=== PATIENT | male | born 1960 | race Caucasian/White ===

== ENCOUNTER → 2021-09-26 15:13 | Outpatient (CLI) | payer OTHER, SELFPAY ==
--- NOTE | 2021-09-26 15:19 | XR_ITS ---
FINAL REPORT CLINICAL HISTORY: medial rt knee pain no injury FINDINGS: RIGHT KNEE 3 views of the right knee were obtained. There is no acute fracture or dislocation. There is moderate medial compartment joint space narrowing with osteophyte formation. There appears to be some intra-articular loose bodies anteriorly with the largest measuring up to 2.2 cm in greatest dimension. These are possibly residing within a popliteal cyst. There are some osteophytes along the undersurface of the patella. IMPRESSION: Hypertrophic changes as described.. Reviewed, Interpreted and Dictated by Wilder Johnson MD Transcribed by Conchita Schmitz Authenticated by Wilder Johnson MD on 09/26/2021 03:54:51 PM [facility]
== END ==
PROVIDERS: PCP Family Medicine; Visit Provider Family Medicine
DX: M17.11 Unilateral primary osteoarthritis, right knee (principal)
CPT/HCPCS: 73562

== ENCOUNTER → 2022-05-08 15:11 | Outpatient (CLI) | payer OTHER, SELFPAY ==
--- NOTE | 2022-05-08 15:23 | ECG_ITS ---
APPROVED REPORT Exam: Resting ECG HR:77 bpm ECG Measurements Heart Rate 77 AXES KS 247 P 0 QRSd 116 QRS -9 QT 375 T -51 QTc 407 Conclusion ELECTRONIC ATRIAL PACEMAKER LEFT VENTRICULAR HYPERTROPHY AND ST-T CHANGE [VOLTAGE CRITERIA PLUS ST/T ABNORMALITY] ABNORMAL ECG UNCONFIRMED REPORT Electronically signed by : Gilberto Sneed MD 05/08/2022 17:36:01
--- NOTE | 2022-05-08 15:45 | XR_ITS ---
FINAL REPORT CLINICAL HISTORY: pre op ; HIGH BLOOD PRESSURE FINDINGS: TWO-VIEW CHEST Heart is normal in size. The mediastinum is unremarkable. Left subclavian ICD is present. There is mild left base atelectasis or scar. There is no pneumothorax. There are mild degenerative changes of the thoracic spine. IMPRESSION: Left base atelectasis or scar. Reviewed, Interpreted and Dictated by Charanjit Quan III, MD Transcribed by Melinda Tellez Authenticated and . [facility]
[2022-05-08 16:38] LABS: Basophils # 0.1 K/mm3 (0-0.2); Basophils % 1.5 % (0.1-2.0); Eosinophils # 0.4 K/mm3 (0.0-0.4); Eosinophils % 4.5 % (0.1-12.0); Hematocrit 43.8 % (42.0-52.0); Hemoglobin 13.7 g/dL (14.1-18.0); Mean Corpuscular HGB Conc 31.2 g/dL (31.8-35.4); Mean Corpuscular Hemoglobin 30.8 pg (27.0-31.2); Mean Corpuscular Volume 98.4 fl (80-94); Monocytes # 0.9 K/mm3 (0.1-1.0); Monocytes % 11.7 % (1.7-9.3); Neutrophils # 4.5 K/mm3 (1.8-7.8); Neutrophils % 57.2 % (37.0-80.0); Platelet Count 254 K/mm3 (142-424); Red Blood Count 4.45 M/mm3 (4.60-6.20); Red Cell Distribution Width 14.5 % (11.5-17.5); White Blood Count 7.8 K/mm3 (4.8-10.8)
[2022-05-08 16:55] LABS: Chloride 105 mmol/L (98-107); Potassium 4.4 mmoL/L (3.5-5.1); Sodium 139 mmol/L (136-145)
[2022-05-08 16:57] LABS: Blood Urea Nitrogen 15 mg/dl (9-20); Estimated Glomerular Filt Rate 99 ml/min (>60); GFR (African American) 119 ML/MIN (>60)
[2022-05-08 16:58] LABS: Alanine Aminotransferase 49 U/L (12-78); Albumin Level 4.5 g/dl (3.5-5.0); Albumin/Globulin Ratio 1.6 (1.1-1.8); Alkaline Phosphatase 83 U/L (38-126); Anion Gap 12.4 mEq/L (5-15); Aspartate Amino Transferase 42 U/L (17-59); Bilirubin,Total 0.5 mg/dl (0.2-1.3); Calcium 9.6 mg/dl (8.4-10.2); Carbon Dioxide 26 mmol/L (22.0-30.0); Globulin 2.8 g/dL (1.3-3.2); Glucose 87 mg/dl (74-100); Total Protein,Serum 7.3 g/dl (6.3-8.2)
== END ==
PROVIDERS: PCP Family Medicine; Visit Provider Orthopaedic Surgery
DX: Z01.818 Encounter for other preprocedural examination (principal); M17.11 Unilateral primary osteoarthritis, right knee
CPT/HCPCS: 36415; 71046; 80053; 85025; 93005

== ENCOUNTER → 2022-05-10 16:40 | Outpatient (CLI) | payer OTHER, SELFPAY ==
[2022-05-10 16:45] LABS: Microscopic, Urine URINE MICROSCOPIC (MICROSCOPIC)
[2022-05-10 17:39] LABS: Appearance,Urine CLEAR (Clear); Bilirubin,Urine Negative (Negative); Blood, Urine Negative (Negative); Color,Urine YELLOW (Yellow); Glucose,Urine (UA) Negative (Negative); Ketones,Urine Negative (Negative); Leukocyte Esterase,Urine Negative (Negative); Nitrate,Urine Negative (Negative); PH,Urine 5.5 (5.0-8.5); Protein,Urine Negative (Negative); Urobilinogen,Urine 0.2 EU/dl (0.2)
--- NOTE | 2022-05-10 17:45 | XR_ITS ---
PROCEDURE INFORMATION: Exam: XR Right Knee Exam date and time: 05/10/2022 5:46 PM Age: 61 years old Clinical indication: Pain; Knee; Right; Additional info: Knee pain TECHNIQUE: Imaging protocol: Radiologic exam of the Right knee. Views: 4 or more views. COMPARISON: CR XR KNEE RT 3V 09/26/2021 3:23 PM FINDINGS: Bones/joints: Advanced tricompartmental degenerative changes most prominent within the medial compartment where there is [id number] contact and osteophyte formation. Several ossified densities along the posteromedial inferior joint line measuring 12 and 8 mm appears stable. Patella mario. No acute fracture or dislocation. Soft tissues: No radiopaque foreign body. IMPRESSION: 1. Advanced degenerative changes of the knee. 2. Patella Mario which can be seen with patellar tendon injury. Clinical correlation recommended.
[2022-05-10 18:18] LABS: Squamous Epithelial Cell,Urine Occasional #/hpf (0-5); WBC,Urine Occasional #/hpf (0-3)
== END ==
PROVIDERS: PCP Family Medicine Geriatric Medicine; Visit Provider Orthopaedic Surgery
DX: U07.1 COVID-19 (principal); M17.11 Unilateral primary osteoarthritis, right knee
CPT/HCPCS: 36415; 73564; 81001; 86850; C9803; U0003; U0005

== ENCOUNTER 2023-11-27 15:35 | Outpatient (CLI) | payer BC, SELFPAY ==
--- NOTE | 2023-11-27 15:42 | XR_ITS ---
FINAL REPORT CLINICAL HISTORY: ACUTE PAIN OF LEFT KNEE FINDINGS: Four views of the left knee reveal no evidence of fracture or dislocation. The bony alignment is normal. There are mild degenerative changes. There is a moderate joint effusion. No localized soft tissue abnormality is seen. IMPRESSION: Moderate joint effusion and mild degenerative changes with no acute bony abnormality. Reviewed, Interpreted and Dictated by Charanjit Quan III, MD Transcribed by Brianda Wall Authenticated and [facility]
== END 2023-11-27 23:59 ==
LOC: RAD 15:36
PROVIDERS: PCP Family Medicine; Visit Provider Physician Assistant
DX: M25.562 Pain in left knee (principal)
CPT/HCPCS: 73562